=== PATIENT | female | born 1965 | race Caucasian/White ===

== ENCOUNTER 2021-09-05 05:14 | Day surgery (SDC) | payer MEDICARE, SELFPAY ==
[2021-09-03 14:27] VITALS: BMI 41.3
[2021-09-05 06:12] VITALS: BP 146/92; PULSE 81; RESP 18; TEMP 36.1; O2SAT 95
[2021-09-05] MEDS: sodium chloride 0.9% 1,000 ML 30 ML IV (06:15)
--- NOTE | 2021-09-05 06:38 | P.HP_ITS ---
Same Day Surgery H&P Indication for Procedure/HPI DATE OF PROCEDURE: September 05, 2021 CHIEF COMPLAINT/INDICATIONFOR SURGICAL PROCEDURE: Screening colonoscopy PREOP DIAGNOSIS: Screening colonoscopy PLANNED PROCEDURE: Operation Date: 09/05/21 07:00 Proposed Procedures p Colonoscopy 82616/z12.11 screening for malignant neoplasm of colon(Not Applicable) - Brian Hubbard MD This is a pleasant 56 years old female patient referred to my practice for screening colonoscopy. Patient was tested positive on Cologuard test. Last colonoscopy was done 13 years ago and was reported as normal per patient's description. Denies family history of colon cancer. ROS All systems have been reviewed negative except as for the above or per problem list. Medications/Allergies* Home Medications Medication Instructions Recorded Confirmed Type albuterol sulfate 90 mcg/actuation 2 puff INHALATION QID PRN 09/03/21 09/03/21 History aerosol inhaler aspirin 81 mg tablet,delayed 81 mg PO DAILY 09/03/21 09/03/21 History release atorvastatin 20 mg tablet 20 mg PO BEDTIME 09/03/21 09/03/21 History escitalopram oxalate 20 mg tablet 20 mg PO DAILY 09/03/21 09/03/21 History levothyroxine 175 mcg tablet 175 mcg PO DAILY 09/03/21 09/03/21 History liothyronine 5 mcg tablet 5 mcg PO DAILY 09/03/21 09/03/21 History lisinopril 20 mg tablet 20 mg PO DAILY 09/03/21 09/03/21 History pramipexole 0.5 mg tablet 0.5 mg PO BEDTIME PRN 09/03/21 09/03/21 History tramadol 50 mg tablet 50 mg PO TID PRN 09/03/21 09/03/21 History loratadine 5 mg chewable tablet 5 mg PO BID 09/05/21 09/05/21 History Allergies/Adverse Reactions Allergy/AdvReac Type Severity Reaction Status Date / Time gabapentin Allergy Intermediate ADR-Headach Verified 09/05/21 06:42 e hydrocodone Allergy Intermediate ADR-Headach Verified 09/05/21 06:42 e codeine Allergy ADR-Itching Verified 09/05/21 06:42 Current Medications: Generic Name Dose Route Start Last Admin Trade Name Freq PRN Reason Stop Dose Admin Sodium Chloride 1,000 mls @ 30 mls/hr 09/05/21 05:45 09/05/21 06:15 Sodium Chloride 0.9% IV 09/06/21 05:44 30 mls/hr .Q24H JUAN Administration Pertinent Exam Findings alert, oriented x 3, clear to auscultation bilaterally, regular rate & rhythm and procedure specific exam findings (Abdominal exam nontender nondistended soft) Recommendations Surgery/Procedure today (Colonoscopy with possible biopsy) Other Plans: Plan of care; After thorough history and physical examination and reviewing the chart, plan to perform screening colonoscopy. I discussed with the patient in details the risks,benefits,alternatives and indications.The risk of aspiration, bleeding, soft tissue injury, perforation of the colon and other potential concomitant complications were explained to the patient in details,also the potential need for Laproscoy/Laparotomy to repair any related complications including but not limited to colectomy and or Closotomy.The patient understood this well and did agree to proceed. Rationale was carefully and clearly discussed with the patient.Appropriate informed consent have been reviewed and signed All questions have been answered and all concerns have been addressed to pat ient's satisfaction. Verbal and written Instructions were given to the patient for colonoscopy prep Coding Level of Care Code Acute Nurse Midwife for Kaitlin Summers
--- NOTE | 2021-09-05 06:48 | ANES.PREANE2 ---
Pre-Anesthetic Assessment Height/Weight: Height 1.7 m Weight 119.748 kg Temp Pulse Resp BP Pulse Ox 97 F L 81 18 146/92 95 09/05/21 06:12 09/05/21 06:12 09/05/21 06:12 09/05/21 06:12 09/05/21 06:12 Preop Diagnosis: Screening colonoscopy Operation Date: 09/05/21 07:00 Proposed Procedures p Colonoscopy 24683/z12.11 screening for malignant neoplasm of colon(Not Applicable) - Brian Hubbard MD Familial anesthetic complications: none Was Beta Jun taken within 24 hours: N/A Was Clonidine taken within 24 hours: N/A Last intake: Intake Last Liquid Date 09/04/21 Last Liquid Time 21:00 Last Solid Date 09/03/21 Last Solid Time 23:00 Social No alcohol and No tobacco Exam alert, oriented x 3, clear to auscultation bilaterally and regular rate & rhythm Airway Submandibular: within normal limits Cervical ROM: within normal limits Mallampati: Class II Dentition: full Pulmonary Chronic Obstructive Pulmonary Disease, Exertional Dyspnea and Sleep Apnea (cpap) CV/HEM Hypertension history of tachycardia None reported Hepatic None reported GI Gastroesophageal Reflux Disease (controlled) Metabolic Hyperlipidemia, Morbid Obesity and Thyroid Disease (hypo) Musc/skel Fibromyalgia, Lower Back Pain and Osteoarthritis/DJD Neuropsych Anxiety and Transient Ischemic Attack Anesthetic Plan ASA status: 3 Anesthesia: MAC Risk of > 500 ml blood loss (7ml/kg in children): No Medications/Allergies Home Medications Medication Instructions Recorded Confirmed Last Taken Type albuterol sulfate 90 mcg/actuation 2 puff INHALATION QID PRN 09/03/21 09/03/21 Unknown History aerosol inhaler aspirin 81 mg tablet,delayed 81 mg PO DAILY 09/03/21 09/03/21 09/04/21 History release atorvastatin 20 mg tablet 20 mg PO BEDTIME 09/03/21 09/03/21 09/03/21 History escitalopram oxalate 20 mg tablet 20 mg PO DAILY 09/03/21 09/03/21 09/03/21 History levothyroxine 175 mcg tablet 175 mcg PO DAILY 09/03/21 09/03/21 09/04/21 History liothyronine 5 mcg tablet 5 mcg PO DAILY 09/03/21 09/03/21 09/04/21 History lisinopril 20 mg tablet 20 mg PO DAILY 09/03/21 09/03/21 09/03/21 History pramipexole 0.5 mg tablet 0.5 mg PO BEDTIME PRN 09/03/21 09/03/21 Unknown History tramadol 50 mg tablet 50 mg PO TID PRN 09/03/21 09/03/21 Unknown History loratadine 5 mg chewable tablet 5 mg PO BID 09/05/21 09/05/21 09/03/21 History Allergies Allergy/AdvReac Type Severity Reaction Status Date / Time gabapentin Allergy Intermediate ADR-Headach Verified 09/05/21 06:42 e hydrocodone Allergy Intermediate ADR-Headach Verified 09/05/21 06:42 e codeine Allergy ADR-Itching Verified 09/05/21 06:42 Current Medications Generic Name Dose Route Start Last Admin Trade Name Freq PRN Reason Stop Dose Admin Sodium Chloride 1,000 mls @ 30 mls/hr 09/05/21 05:45 09/05/21 06:15 Sodium Chloride 0.9% IV 09/06/21 05:44 30 mls/hr .Q24H JUAN Administration Data Anesthesia Cardiac Studies: No Data to Display
[2021-09-05 07:22] VITALS: BP 130/79; PULSE 88; RESP 12; TEMP 36.1; O2SAT 94
--- NOTE | 2021-09-05 07:23 | ANE.PACU2 ---
Inpatient post-anesthesia follow up: Airway intact: Yes Vital signs: Temperature 97 F Pulse Rate 88 Respiratory Rate 12 Blood Pressure 130/79 Pulse Oximetry 94 Oxygen Delivery Me thod Room Air Oxygen Flow Rate Fraction of Inspir ed Oxygen Hydration adequate: Yes Nausea and vomiting: No Pain level: 1 Mental status: Baseline
[2021-09-05 07:40] VITALS: BP 127/81; PULSE 72; RESP 16; O2SAT 95
== END 2021-09-05 07:50 | disposition home or self-care (01) ==
PROVIDERS: PCP Family Medicine; Visit Provider Surgery
PROC: 0DJD8ZZ Inspection of Lower Intestinal Tract, Via Natural or Artificial Opening Endoscopic (ICD-10-PCS; CPT 45378; principal; 2021-09-05 07:00)
DX: Z12.11 Encounter for screening for malignant neoplasm of colon (principal); Z79.82 Long term (current) use of aspirin; D12.8 Benign neoplasm of rectum; D12.0 Benign neoplasm of cecum; G47.33 Obstructive sleep apnea (adult) (pediatric); K21.9 Gastro-esophageal reflux disease without esophagitis; E78.5 Hyperlipidemia, unspecified; E66.01 Morbid (severe) obesity due to excess calories; Z68.41 Body mass index [BMI] 40.0-44.9, adult; F41.9 Anxiety disorder, unspecified; Z86.73 Personal history of transient ischemic attack (TIA), and cerebral infarction without residual deficits
CPT/HCPCS: 45380; 88305; J2704; J7030

== ENCOUNTER → 2021-10-08 11:30 | Outpatient (BNVA) | payer MEDICARE, SELFPAY | PROVIDERS: PCP Family Medicine; Visit Provider Surgery | DX: Z09 Encounter for follow-up examination after completed treatment for conditions other than malignant neoplasm (principal) | CPT/HCPCS: 99212 ==

== ENCOUNTER → 2021-10-30 09:10 | Outpatient (BNVA) | payer MEDICARE, SELFPAY | PROVIDERS: PCP Family Medicine; Visit Provider Internal Medicine Critical Care Medicine | DX: R06.02 Shortness of breath (principal); R05.3 Chronic cough; Z77.098 Contact with and (suspected) exposure to other hazardous, chiefly nonmedicinal, chemicals | CPT/HCPCS: 36415; 82785; 85025; 86003; 99204 ==

== ENCOUNTER → 2021-12-02 09:50 | Outpatient (BNVA) | payer MEDICARE, SELFPAY | PROVIDERS: PCP Family Medicine; Visit Provider Internal Medicine Critical Care Medicine | DX: J45.909 Unspecified asthma, uncomplicated (principal); R05.3 Chronic cough; Z77.098 Contact with and (suspected) exposure to other hazardous, chiefly nonmedicinal, chemicals; I10 Essential (primary) hypertension | CPT/HCPCS: 99214 ==

== ENCOUNTER → 2022-01-01 08:41 | Outpatient (BNVA) | payer MEDICARE, SELFPAY | PROVIDERS: PCP Family Medicine; Visit Provider Surgery | DX: K80.20 Calculus of gallbladder without cholecystitis without obstruction (principal); R06.02 Shortness of breath; Z01.812 Encounter for preprocedural laboratory examination; K76.0 Fatty (change of) liver, not elsewhere classified | CPT/HCPCS: 36415; 80053; 85025; 85610; 99203 ==

== ENCOUNTER 2022-01-07 13:51 | Outpatient (CLI) | payer MEDICARE, SELFPAY ==
--- NOTE | 2022-01-07 14:30 | USCV_ITS ---
Homa Vallejo Age: 56 Gender: F : 1965 Exam Date: 01/07/2022 14:07 Ordering Phys: Michel Ramos MD Technologist: Lamin Cannon [place] [facility] [place]ication: SHORTNESS OF BREATH BP: 122 / 78 HR: 65 Rhythm: Sinus Technical Quality: Adequate MEASUREMENTS (Male / Female) Normal Values 2D ECHO LV Diastolic Diameter PLAX 4.8 cm 4.2 - 5.9 / 3.9 - 5.3 cm LV Systolic Diameter PLAX 3.2 cm IVS Diastolic Thickness 1.1 cm 0.6 - 1.0 / 0.6 - 0.9 cm IVS Systolic Thickness 1.3 cm LVPW Diastolic Thickness 1.2 cm 0.6 - 1.0 / 0.6 - 0.9 cm LVPW Systolic Thickness 1.2 cm LVOT Diameter 2.0 cm LV Ejection Fraction 2D Teich 62.6 % LV Ejection Fraction MOD 2C 59.9 % LV Ejection Fraction 2C AL 62.6 % LA Diameter 3.7 cm IVC Diameter 2.3 cm M-MODE Aortic Annulus Diameter 3.2 cm LA Ao Ratio MM 1.2 MV E Point Septal Separation 1.5 cm DOPPLER AV Peak Velocity 110.0 cm/s LVOT Peak Velocity 82.0 cm/s AV Area Cont Eq vti 3.0 cm squared AV Area Cont Eq pk 2.5 cm squared MV Area PHT 5.0 cm squared Mitral E to A Ratio 0.9 MV E' Velocity 38.0 cm/s Mitral E to MV E' Ratio 9.3 Mitral E to LV E' Lateral Ratio 8.9 Mitral E to LV E' Septal Ratio 9.8 TR Peak Velocity 233.3 cm/s TR Peak Gradient 21.8 mmHg TV Peak E Velocity 79.0 cm/s Right Atrial Pressure 3.0 mmHg Pulmonary Artery Systolic Pressu 24.8 mmHg RV Acceleration Time 0.2 s FINDINGS Left Ventricle Normal left ventricular size, systolic function and wall thickness, with no regional wall motion abnormalities. Left ventricular ejection fraction is estimated at 60 %. Grade II diastolic dysfunction, moderately elevated filling pressures. Right Ventricle Normal right ventricular size and systolic function. Right ventricular systolic pressure 24 mmHg. Right Atrium Normal right atrial size. Left Atrium Normal left atrial size. Mitral Valve Mildly thickened mitral valve. No mitral valve stenosis. Trace mitral valve regurgitation. Aortic Valve Probably trileaflet aortic valve. No aortic valve stenosis. No aortic valve regurgitation. Tricuspid Valve Structurally normal tricuspid valve. Trace tricuspid valve regurgitation. Pulmonic Valve Pulmonic valve not well visualized. Pericardium No pericardial effusion. Aorta Normal size aortic root and proximal ascending aorta. IVC Inferior vena cava not visualized. CONCLUSIONS 1. Normal left ventricular size, systolic function and wall thickness, with no regional wall motion abnormalities. Left ventricular ejection fraction is estimated at 60 %. Grade II diastolic dysfunction, moderately elevated filling pressures. 2. Normal right ventricular size and systolic function. 3. Pulmonary artery pressure estimated at 24 mm Hg. 4. No significant valvular abnormality. 5. No prior similar studies to compare. Tonya Kirkland MD (Electronically Signed) Final Date: 11 January 2022 19:25 S
== END 2022-01-07 13:52 | disposition home or self-care (01) ==
LOC: RAD 13:52
PROVIDERS: PCP Family Medicine; Visit Provider Internal Medicine Critical Care Medicine
DX: R06.02 Shortness of breath (principal)
CPT/HCPCS: 93306

== ENCOUNTER 2022-01-14 08:00 | Day surgery (SDC) | payer MEDICARE, SELFPAY ==
[2022-01-14] VITALS (12 sets, daily range): BP systolic 131–152; BP diastolic 75–94; PULSE 61–81; RESP 12–19; TEMP 36.4–36.6; O2SAT 92–99
[2022-01-14] MEDS: acetaminophen 1,000 MG/100 ML PIGGYBACK 400 MG IV (08:44)
[2022-01-14] MEDS: sodium chloride 0.9% 1,000 ML 30 ML IV (08:44)
--- NOTE | 2022-01-14 08:48 | ANES.PREANE2 ---
Pre-Anesthetic Assessment Height/Weight: Height 1.7 m Weight 112.945 kg Temp Pulse Resp BP Pulse Ox O2 Del Method 97.7 F 76 16 146/79 98 01/14/22 08:31 01/14/22 08:31 01/14/22 08:31 01/14/22 08:31 01/14/22 08:31 01/14/22 08:31 Preop Diagnosis: Symptomatic cholelithiasis Operation Date: 01/14/22 09:55 Proposed Procedures p Laparoscopic Cholecystectomy 51919,K82.9(Not Applicable) - Brian Hubbard MD Familial anesthetic complications: None Was Beta Jun taken within 24 hours: N/A Was Clonidine taken within 24 hours: N/A Last intake: Intake Last Liquid Date 01/13/22 Last Liquid Time 22:00 Last Solid Date 01/13/22 Last Solid Time 22:00 Social No alcohol and No tobacco Exam alert, oriented x 3, clear to auscultation bilaterally and regular rate & rhythm Airway Mallampati: Class II Dentition: full Pulmonary Exertional Dyspnea and Sleep Apnea CV/HEM Hypertension GI Gastroesophageal Reflux Disease Metabolic Morbid Obesity and Thyroid Disease Neuropsych Headache Anesthetic Plan ASA status: 3 Anesthesia: General Risk of > 500 ml blood loss (7ml/kg in children): No Medications/Allergies Home Medications Medication Instructions Recorded Confirmed Last Taken Type aspirin 81 mg tablet,delayed 81 mg PO DAILY 09/03/21 01/14/22 01/07/22 History release atorvastatin 20 mg tablet 20 mg PO BEDTIME 09/03/21 01/14/22 01/14/22 History escitalopram oxalate 20 mg tablet 20 mg PO DAILY 09/03/21 01/14/22 01/13/22 History (Lexapro) levothyroxine 175 mcg tablet 175 mcg PO DAILY 09/03/21 01/14/22 01/14/22 History pramipexole 0.5 mg tablet (Mirapex) 0.5 mg PO BEDTIME PRN Sleep 09/03/21 01/14/22 12/24/21 History tramadol 50 mg tablet 50 mg PO TID PRN Pain 09/03/21 01/14/22 12/24/21 History albuterol sulfate 90 mcg/actuation 2 puff inhalation QID PRN 10/30/21 01/14/22 11/15/21 Rx aerosol inhaler shortness of breath or wheezing 30 days #8.5 grams budesonide-formoterol HFA 160 2 puff inhalation BID #10.2 grams 12/02/21 01/14/22 01/14/22 Rx mcg-4.5 mcg/actuation aerosol inhaler (Symbicort) losartan 50 mg tablet 100 mg PO DAILY 30 days #30 tabs 12/02/21 01/13/22 01/11/22 Rx Allergies Allergy/AdvReac Type Severity Reaction Status Date / Time gabapentin Allergy Intermediate ADR-Headach Verified 01/14/22 08:24 e hydrocodone Allergy Intermediate ADR-Headach Verified 01/14/22 08:24 e codeine Allergy ADR-Itching Verified 01/14/22 08:24 Current Medications Generic Name Dose Route Start Last Admin Trade Name Freq PRN Reason Stop Dose Admin Sodium Chloride 1,000 mls @ 30 mls/hr 01/14/22 08:30 01/14/22 08:44 Sodium Chloride 0.9% IV 01/15/22 08:29 30 mls/hr .Q24H JUAN Administration PFSH Anesthesia Medical History Chronic GERD Hypothyroidism Surgical History History of appendectomy History of hysterectomy History of total left knee replacement (TKR) Hx of colonoscopy 09/05/21 Social History Smoking and tobacco status: never smoked Data Anesthesia Cardiac Studies: Echocardiogram 01/07/22
--- NOTE | 2022-01-14 09:56 | W.PM.OPSUD ---
Surgery/Procedure H&P Update DATE OF PROCEDURE: January 14, 2022 DATE H&P PERFORMED: 01/01/22 H&P UPDATE INFORMATION: I have reviewed H&P completed within last 30 days, I have examined patient prior to procedure and Changes to prior documentation as noted here (Patient lost 10 pounds on liquid protein diet.) PREOP DIAGNOSIS: Symptomatic cholelithiasis PRIMARY INDICATION FOR PROCEDURE: The same PLANNED PROCEDURE: Operation Date: 01/14/22 09:55 Proposed Procedures p Laparoscopic Cholecystectomy 66775,K82.9(Not Applicable) - Brian Hubbard MD
[2022-01-14] MEDS: scopolamine 1.5 Patch 1 PATCH TRANSDERMA (10:04)
[2022-01-14] MEDS: ampicillin-sulbactam 3 GM in sodium chloride 0.9% (plus) 50 ML IV (10:11)
[2022-01-14] MEDS: lidocaine 1% INJ 20 mL SUBCUT (10:40)
--- NOTE | 2022-01-14 11:42 | P.OP_ITS ---
Operative Report Date of procedure: January 14, 2022 Pre-op diagnosis: Preop Diagnosis Symptomatic cholelithiasis Post-op diagnosis: Chronic calculus cholecystitis Procedure done: Laparoscopic cholecystectomy Implants: Surgicel at the gallbladder fossa Specimens removed/disposition: Gallbladder and contents Surgeon: Brian Hubbard MD Central Office Equipment Engineer: Surgical doyle Clark Circulating nurse Ruby Freitas Anesthesia: General (REGIONAL DIRECTOR Abimael) Estimated blood loss (mL): 20 Procedure: Patient was identified in the holding area and taken back to the operative suite, placed in supine position intubated by anesthesia . Time-out was done verifying the patient's name/date of /planned procedure and destination after the procedure, all were in agreement. SCDs confirmed to be functioning, preoperative antibiotics administered per protocol, and beta renetta protocol was confirmed. Patient was appropriately secured to the table, footboard was applied to the OR table, before prep and drape anesthesia was asked to tilt the table back and forth to make sure that the patient is appropriately secured and she was. Prep and drape of the abdomen was done under the usual sterile technique, followed by that supraumbilical skin incision,skin incision was done by a 15 blade knife, and stay sutures were applied to the fascia and Collins trocar technique was used to enter the abdominal without injuring any abdominal viscera except for a small superficial serosal tear of one of the small bowel loops, started by low flow gas insufflation followed by a high flow, started with a 10 mm laparoscope and under direct vision there was no evidence of any injuries, the scope then switched to a 30? ,10 millimeter scope and under direct visualization 5 millimeter trocar was inserted in the epigastric region followed by two 5 mm trocars were inserted in the right upper quadrant that was done after injection of local lidocaine at all incision sites. As I noticed a superficial small serosal tear none transfixing of one of the small bowel loops likely took place upon the entrance of the abdominal cavity. I elected to put a figure of eight 2-0 silk suture under direct visualization. There was no bleeding or violation of the integrity of the small bowel or narrowing. Gallbladder showed chronic cholecystitis and Fatty Liver. Patient was then positioned in the head up and tilted to the left. Ratcheted forceps were introduced into the lateral most 5mm port and was applied unto the fundus of the gallbladder cephalad and using Bullet forceps the infundibulum of the gallbladder was retracted laterally. Using [place] forceps then L-hook cautery to dissect the peritoneum overlying the Calot's triangle which was then opened medially and laterally until the cyst ic duct and the cystic artery were skeletonized. Dissection was carried along the body of the gallbladder and after ensuring critical view of safety was identfied. Cystic duct and cystic artery were seen connected to the gallbladder. Clips were applied on the cystic duct towards the common bile duct 1 towards the gallbladder then divided is in sharp scissors, 2 clips were then applied onto the cystic artery and 1 towards the gallbladder and divided by sharp scissors. Additional traversing vessel was clipped. And divided. Dissection was then carried along of the gallbladder from the gallbladder fossa using cautery as well as sharp dissection with heat energy. The gallbladder then was dissected out from the gallbladder fossa totally , cholecystectomy was then achieved and was placed in an Endo Catch bag and then retrieved from the Collins trocar site under direct visualization using a 5 mm 30? scope through the epigastric trocar, specimen was then passed to the circulating nurse to go for permanent pathology,irrigation and hemostasis was done to the gallbladder fossa after hemostasis was secured, final survey laparoscopy was done that showed no injuries. Suction irrigation was obtained. Final look on the bowel loop that I did place the suture and showed viability with no complications. Noticed towards the lower abdomen previous scar tissues and small bowel loops stuck to the abdominal wall but there was no herniation. The supraumbilical fascial defect was then closed using interrupted number one PDS sutures using a fascial closure device ;Logan Kaplan under direct visualization following that Gas was allowed to deflate,Trocars were then taken out under direct vision there was no evidence of bleeding. Specimen was passed to the circulating nurse for permanent pathology. No drains were placed and the supraumbilical incision as well as all trocar sites were closed by 3/0 Vicryl followed by 4-0 Monocryl to approximate the skin edges of the incisions , dressing was applied in the form of surical glue and the patient patient got extubated and was taken to recovery area in a stable condition. Count of sponges,needles and instruments were completed at the end of the procedure I was present for the whole entire procedure.
--- NOTE | 2022-01-14 12:13 | SUR.PHASEI ---
1203 PT TO PACU 5 PT SLEEPS WITH ORAL AIRWAY IN PLACE, GOOD RESP EFFORT NOTED IV PATENT TO RT FA #20 WITH NS 700ML UP AT KVO RATE PER GRAVITY, MONITOR SR WITH NO ECTOPY NOTED. PT HAS SOFT ABDOMEN WITH 5 SITE WITH BANDAIDS TO ABDOMEN D/I BILAT SCDS ON AND WORKING, ID BRACELET TO LT WRIST PT ID'D WITH 2 IDENTIFIERS [id number] PT AWAKES AND ORAL AIRWAY OUT PT VERBALLY DENIES PAIN AND NAUSEA. VSS.
[2022-01-14] MEDS: fentaNYL 50 mcg/mL INJ 2mL IVP (12:20)
[2022-01-14] MEDS: ipratropium 0.5 mg/2.5 mL Neb INHALATION (12:45)
--- NOTE | 2022-01-14 12:51 | SUR.PHASEI ---
1236 PT TO OPS 12 AWAKE ALERT PT ASSISTED UP IN BED WTH HOB AT 45 PT TAKING SIPS OF SPRITE, AND BELCHIND OCCASIONALLY, PT COUGHS STRONGLY HANDOFF AT BEDSIDE. 1243 PT WITH AUDIBLE WHEEZING, PT REFUSED TO COUGH DUE TO PAIN AFTER MOVEMENT, PT STATES SHE USES ALBUTEROL INHALER AT HOME SEE DUONEB GIVEN ORDERED, PT TO BEDSIDE, 1253 TX FINISHED PT AWAKE ALERT TAKING SIPS OF SODA , VSS PT CARE ASSUMED BY ANGELLA GOMEZ.
[2022-01-14] MEDS: TRAMadol 50 mg Tablet PO (13:08)
--- NOTE | 2022-01-14 13:46 | SUR.PHASEII ---
5725 up to bathroom and ambulating in hallway and states feels much better and belched a couple of times without any difficulty, with pt and ambulating with pt
--- NOTE | 2022-01-14 16:29 | ANE.PACU2 ---
Inpatient post-anesthesia follow up: Airway intact: Yes Vital signs: Temperature 97.8 F Pulse Rate 61 Respiratory Rate 17 Blood Pressure 131/75 Pulse Oximetry 99 Oxygen Delivery Me thod Room Air Oxygen Flow Rate 8 Fraction of Inspir ed Oxygen Hydration adequate: Yes Nausea and vomiting: No Pain level: 1 Mental status: Baseline
== END 2022-01-14 14:00 | disposition home or self-care (01) ==
PROVIDERS: PCP Family Medicine; Visit Provider Surgery
PROC: 0FT44ZZ Resection of Gallbladder, Percutaneous Endoscopic Approach (ICD-10-PCS; CPT 47562; principal; 2022-01-14 09:45)
DX: K80.10 Calculus of gallbladder with chronic cholecystitis without obstruction (principal); G47.30 Sleep apnea, unspecified; I10 Essential (primary) hypertension; K21.9 Gastro-esophageal reflux disease without esophagitis; E66.01 Morbid (severe) obesity due to excess calories; Z68.38 Body mass index [BMI] 38.0-38.9, adult; Z79.82 Long term (current) use of aspirin; E03.9 Hypothyroidism, unspecified
CPT/HCPCS: 47562; 88304; J0131; J0295; J0330; J1100; J2405; J2704; J3010; J3490; J7030; J7644

== ENCOUNTER → 2022-01-30 14:30 | Outpatient (BNVA) | payer MEDICARE, SELFPAY | PROVIDERS: PCP Family Medicine; Visit Provider Surgery | DX: Z09 Encounter for follow-up examination after completed treatment for conditions other than malignant neoplasm (principal); K76.0 Fatty (change of) liver, not elsewhere classified | CPT/HCPCS: 99024 ==

== ENCOUNTER 2022-08-08 09:44 | Outpatient (CLI) | payer MEDICARE, SELFPAY ==
--- NOTE | 2022-08-08 09:48 | MM_ITS ---
WS: [id number] SCREENING DIGITAL TOMOSYNTHESIS MAMMOGRAM WITH CAD HISTORY: SCREENING COMPARISON: 06/06/2021 and 03/22/2019 Bilateral CC and MLO with tomosynthesis views submitted. Synthetic mammography reviewed. Computer aid ed detection analyzed. Breast composition: There are scattered areas of fibroglandular density. No suspicious masses, microc alcifications or architectural distortion. MM/[place] [id number] IMPRESSION: BI-RADS: 1-Negative FOLLOW UP: 1 Year Follow-up
== END 2022-08-08 09:45 | disposition home or self-care (01) ==
LOC: RAD 09:46
PROVIDERS: PCP Family Medicine; Visit Provider Family Medicine
DX: Z12.31 Encounter for screening mammogram for malignant neoplasm of breast (principal)
CPT/HCPCS: 77063; 77067